=== PATIENT | female | born 2005 | race Caucasian/White ===

== ENCOUNTER 2023-02-04 19:51 | Emergency (ER) | payer BC ==
[2023-02-04] MEDS: Triamcinolone Acetonide 40 MG/ML 1 ML SDV IM ONE (20:39)
== END 2023-02-04 20:54 | disposition home or self-care (01) ==
LOC: FB.ED 19:51
DX: L50.9 Urticaria, unspecified (principal); Z79.899 Other long term (current) drug therapy
CPT/HCPCS: 96372; 99283; J3301